=== PATIENT | female | born 1960 | race Caucasian/White ===

== ENCOUNTER 2018-04-30 05:40 | Day surgery (SDC) | payer OTHER, MEDICAID ==
[~2018-04-30] VITALS: Ht 149.9 cm; Wt 57.3 kg
[2018-04-30] MEDS ORDERED: ALBUTEROL SULFATE 2.5 MG/0.5 ML NEB SOLUTION NEB ONE (05:41)
[2018-04-30] MEDS ORDERED: BENZOCAINE 20% 50 MCG/SPRAY 57 GM TP ONE (05:41)
[2018-04-30] MEDS ORDERED: LIDOCAINE 2% 5 ML JELLY TP ONE (05:41)
[2018-04-30] MEDS ORDERED: LIDOCAINE 4% 50 ML SOLUTION TP ONE (05:41)
[2018-04-30] MEDS ORDERED: SODIUM CHLORIDE 0.9% 1,000 ML IV ONE (06:30)
[2018-04-30] MEDS ORDERED: ALBU8.5H8 IH (07:18)
[2018-04-30] MEDS ORDERED: VIT1TABL82 PO (07:18)
[2018-04-30] MEDS ORDERED: BECL10.62 IH (07:18)
[2018-04-30] MEDS ORDERED: MONT10TA21 PO (07:18)
[2018-04-30] MEDS ORDERED: RANI150T7 PO (07:18)
[2018-04-30] MEDS ORDERED: FLUT16H NASAL (07:18)
[2018-04-30] MEDS ORDERED: PILO5TAB PO (07:18)
[2018-04-30] MEDS ORDERED: LEFL10TA15 PO (07:19)
[2018-04-30] MEDS ORDERED: MIDAZOLAM HCL 2 MG/2 ML VIAL ONE (07:27)
[2018-04-30] MEDS ORDERED: FentaNYL CITRATE-PF 100 MCG/2 ML VIAL ONE (07:27)
[2018-04-30] MEDS ORDERED: MethylPREDNISolone SOD SUCC 125 MG/2 ML VIAL IVP ONE (09:00)
[2018-04-30] MEDS ORDERED: OXYGEN THERAPY IH SCH (20:00)
== END 2018-04-30 10:50 | disposition home or self-care (01) ==
LOC: SURGERY 05:40
PROVIDERS: ATTEND Internal Medicine Critical Care Medicine
DX: J38.4 Edema of larynx (principal); B37.0 Candidal stomatitis; J45.909 Unspecified asthma, uncomplicated; M19.90 Unspecified osteoarthritis, unspecified site; Z88.0 Allergy status to penicillin; Z79.899 Other long term (current) drug therapy; Z98.890 Other specified postprocedural states
CPT/HCPCS: 31623; 31624; 71045; 87015; 87070; 87101; 87205; 87206; 87220; 88108; 88312; J2250; J2930; J3010